=== PATIENT | female | born 1945 | race African-American/Black ===

== ENCOUNTER 2023-08-31 10:11 | Day surgery (SDC) | payer MEDICARE ==
[2023-08-30 12:48] VITALS: BMI 38.9
[2023-08-31] MEDS ORDERED: fentaNYL PF 100 MCG/2 ML SYRINGE ONE (11:22)
[2023-08-31] MEDS ORDERED: PROPOFOL 20 ML ONE (11:22)
[2023-08-31] MEDS ORDERED: Lidocaine 1% PF 5 ML VIAL ONE (11:23)
[2023-08-31 12:08] LABS: #Basophils Less than 0.03 10x3/uL (0.0-0.2); %Basophils 0.4 % (0.0-1.0); %Lymphocytes 35.3 % (21.0-51.0); %Monocytes 7.9 % (0.0-10.0); Hematocrit 37.9 % (36.0-47.0); Hemoglobin 12.5 g/dL (12.0-16.0); Mean Corpuscular Hemoglobin 30.3 pg (27.0-31.0); Mean Corpuscular Volume 91.8 fL (78.0-98.0); Mean Platelet Volume 9.6 fL (7.4-10.4); Platelet Count 199 10x3/uL (130-400); RBC Distribution Width 12.8 % (11.5-14.5); Red Blood Cell (RBC) Count 4.13 mill/uL (4.20-5.40)
[2023-08-31] MEDS ORDERED: CEFAZOLIN 2 GM VIAL ONE (12:20)
[2023-08-31] MEDS ORDERED: Sodium Chloride 0.9% 100 ML ONE (12:20)
[2023-08-31 12:26] LABS: Anion Gap 14 mmol/L (10-20); BUN (Urea Nitrogen) 15 mg/dL (9.8-20.1); Calc. Creatinine Clearance 89 mL/min (70-130); Calcium 9.8 mg/dL (7.8-10.44); Carbon Dioxide 25 mmol/L (23-31); Chloride 108 mmol/L (98-107); Estimated GFR 74; Glucose 93 mg/dL (83-110); Potassium 4.5 mmol/L (3.5-5.1); Sodium 142 mmol/L (136-145)
[2023-08-31] MEDS ORDERED: Ondansetron PF 4 MG/2 ML Vial ONE (13:01)
[2023-08-31] MEDS ORDERED: Metoclopramide HCl 10 MG (2 mL) VIAL ONE (13:01)
[2023-08-31] MEDS ORDERED: diphenhydrAMINE 50 MG/ML VIAL ONE (13:01)
[2023-08-31] MEDS ORDERED: EPINEPHrine 1 MG/ML VIAL ONE (13:28)
[2023-08-31] MEDS ORDERED: Bupivacaine PF 0.5% 30 ML VIAL ONE (13:28)
[2023-08-31] MEDS ORDERED: Labetalol HCl 100 MG/20 ML VIAL ONE (14:02)
== END 2023-08-31 16:50 | disposition home or self-care (01) ==
LOC: SDC 10:11
PROVIDERS: ATTEND Orthopaedic Surgery
PROC: 0PSJ04Z Reposition Left Radius with Internal Fixation Device, Open Approach (ICD-10-PCS; principal; 2023-08-31)
DX: S52.502A Unspecified fracture of the lower end of left radius, initial encounter for closed fracture (principal); S52.612A Displaced fracture of left ulna styloid process, initial encounter for closed fracture; Z79.899 Other long term (current) drug therapy; X58.XXXA Exposure to other specified factors, initial encounter
CPT/HCPCS: 25608; 64450; 73100; 80048; 85025; 93005; C1713 ×5; J0171; J0665; J1200; J2405; J2704; J2765; J3490; 93010